=== PATIENT | female | born 1960 | race Two or more races ===

== ENCOUNTER 2016-07-18 08:09 | Emergency (ER) | payer BC, OTHER ==
[2016-07-18 08:15] VITALS: BP 151/97; PULSE 95; TEMP 98.3; BMI 38.7
--- NOTE | 2016-07-18 08:46 | PDOC ---
History of Present Illness - General Chief Complaint: Toothache Stated Complaint: SWOLLEN GUMS, TOOTHACHE Time Seen by Provider: 07/18/16 08:38 History Source: Patient Exam Limitations: No Limitations - History of Present Illness Initial Comments: 07/18/16 08:55 Chief complaint: Toothache and gum swelling right upper molar History of present illness: Patient is a 55-year-old female with a history of hypertension/GERD here today complaining of severe toothache right upper molar with swelling around her gum and tenderness abdominal area once yesterday. Patient took ibuprofen with relief of pain. Patient is requesting more ibuprofen and possible antibiotic. Patient reports that she has been getting dental care and is supposed to have this tooth extracted soon and get upper dentures. She does not have any facial swelling. Patient reports the pain is sharp and is currently a 10 out of 10. 07/18/16 08:58 Timing/Duration: getting worse Severity: severe Associated Symptoms: reports: other (rt. upper molar pain with swelling/ tenderness of gum around tooth) Past History - Past Medical History Allergies/Adverse Reactions: Allergies Allergy/AdvReac Type Severity Reaction Status Date / Time meperidine HCl [From Demerol] Allergy Verified 07/18/16 08:15 Home Medications: Ambulatory Orders Lisinopril 10 mg PO HS 10/29/15 Ibuprofen [Motrin -] 600 mg PO Q6H PRN #18 tablet MDD 4 07/18/16 Penicillin V Potassium [Pen Vee K -] 500 mg PO QID #28 tablet MDD 4 07/18/16 Anemia: No Asthma: No Cancer: No Cardiac Disorders: No CVA: No COPD: No CHF: No Dementia: No Diabetes: No GI Disorders: Yes (GERD) Disorders: No HTN: Yes Hypercholesterolemia: No Seizures: No Thyroid Disease: No - Surgical History Abdominal Surgery: No Appendectomy: No Cardiac Surgery: No Cholecystectomy: Yes Lung Surgery: No Neurologic Surgery: No Orthopedic Surgery: Yes (lt shoulder) - Psycho/Social/Smoking Cessation Hx Anxiety: No Suicidal Ideation: No Smoking Status: No Smoking History: Former smoker Have you smoked in the past 12 months: No Number of Cigarettes Smoked Daily: 0 If you are a former smoker, when did you quit?: 10 YRS Information on smoking cessation initiated: No Hx Alcohol Use: No Drug/Substance Use Hx: No Substance Use Type: None Hx Substance Use Treatment: No Review of Systems - Review of Systems Able to Perform ROS?: Yes Constitutional: No: Symptoms Reported HEENTM: Yes: Dental Problems (rt. upper molar toothache with surrounding edema and tenderness of the gum since yesterday) Respiratory: No: Symptoms reported Cardiac (ROS): No: Symptoms Reported ABD/GI: No: Symptoms Reported Musculoskeletal: No: Symptoms Reported Integumentary: No: Symptoms Reported Neurological: No: Symptoms reported *Physical Exam - Vital Signs Last Vital Signs Temp Pulse Resp BP Pulse Ox 98.3 F 95 H 20 151/97 99 07/18/16 08:11 07/18/16 08:11 07/18/16 08:11 07/18/16 08:11 07/18/16 08:11 - Physical Exam General Appearance: Yes: Appropriately Dressed HEENT: positive: TMs Normal, Other (right upper molar decay of tooth noted with surrounding edema and tenderness of gum patient does not have any other teeth except for this 1 tooth). negative: Pharyngeal Erythema, Tonsillar Exudate, Tonsillar Erythema, Nasal Congestion, Rhinorrhea Neck: negative: Lymphadenopathy (R), Lymphadenopathy (L) Respiratory/Chest: positive: Lungs Clear, Normal Breath Sounds. negative: Chest Tender, Respiratory Distress Cardiovascular: positive: Regular Rhythm, Regular Rate, S1, S2 Integumentary: positive: Normal Color Neurologic: positive: Alert, Responsive Medical Decision Making - Medical Decision Making 07/18/16 08:59 Patient is a 55-year-old female with a history of hypertension here today complaining of severe toothache right upper molar with swelling around her gum and tenderness abdominal area once yesterday. Patient took ibuprofen with relief of pain. Patient is requesting more ibuprofen and possible antibiotic. Patient reports that she has been getting dental care and is supposed to have this tooth extracted soon and get upper dentures. She does not have any facial swelling. Patient reports the pain is sharp and is currently a 10 out of 10. Tooth ache with infection of the surrounding gum Plan: Ibuprofen 600 mg by mouth now then every 6 hours as needed for pain Pen VK 500 mg one tab every 6 hours 7 days Follow-up with your dentist as soon as possible *DC/Admit/Observation/Transfer Diagnosis at time of Disposition: Toothache, Dental infection - Discharge Dispostion Disposition: HOME Condition at time of disposition: Stable - Patient Instructions Additional Instructions: Follow up with dentist at [facility] in [place] as soon as possible Foods and fluids as tolerated Return to emergency room if any facial swelling or worsening pain Patient voiced understanding of discharge instructions will questions were answered
[2016-07-18] MEDS ORDERED: IBUPROFEN 600 MG TABLET (FP) PO ONE ×2 (08:55→09:00)
== END 2016-07-18 09:26 | disposition home or self-care (01) ==
LOC: JERFT 08:09
DX: K04.7 Periapical abscess without sinus (principal); I10 Essential (primary) hypertension
CPT/HCPCS: 99281-25

== ENCOUNTER 2018-11-10 13:01 | Emergency (ER) | payer OTHER ==
[2018-11-10 13:05] VITALS: BP 143/92; PULSE 102; TEMP 98.1; BMI 37.1
[2018-11-10] MEDS ORDERED: ALBUTEROL SO4 2.5/IPRATROPIUM 0.5 INH SOL 3 ML VIAL.NEB. NEB ONE ×2 (13:35→13:37)
--- NOTE | 2018-11-10 13:41 | PDOC ---
History of Present Illness - General Chief Complaint: Respiratory Stated Complaint: COUGHING/ LOWER BACK PAIN Time Seen by Provider: 11/10/18 13:25 History Source: Patient Exam Limitations: No Limitations - History of Present Illness Initial Comments: 11/10/18 13:36 suffers from seasonal ALLERGIES but has taken no medication for relief of those. Denies fever, ear or throat pain. Timing/Duration: reports: getting worse Severity: reports: mild, moderate Associated Symptoms: reports: cough, nasal congestion, nasal drainage, wheezing. denies: earache, fever/chills, headache Past History - Travel Traveled outside of the country in the last 30 days: No Close contact w/someone who was outside of country & ill: No - Past Medical History Allergies/Adverse Reactions: Allergies Allergy/AdvReac Type Severity Reaction Status Date / Time meperidine HCl [From Demerol] Allergy Verified 11/10/18 13:03 Home Medications: Ambulatory Orders Lisinopril 10 mg PO HS 10/29/15 Albuterol Sulfate Inhaler - [Ventolin HFA Inhaler -] 1 - 2 inh PO Q4H #1 inhaler 11/10/18 Cetirizine HCl [Zyrtec -] 10 mg PO DAILY #30 tablet 11/10/18 Anemia: No Asthma: No Cancer: No Cardiac Disorders: No CVA: No COPD: No CHF: No Dementia: No Diabetes: No GI Disorders: Yes (GERD) Disorders: No HTN: Yes Hypercholesterolemia: No Seizures: No Thyroid Disease: No - Surgical History Abdominal Surgery: No Appendectomy: No Cardiac Surgery: No Cholecystectomy: Yes Lung Surgery: No Neurologic Surgery: No Orthopedic Surgery: Yes (lt shoulder) - Immunization History Immunization Up to Date: Yes - Suicide/Smoking/Psychosocial Hx Smoking Status: No Smoking History: Never smoked Have you smoked in the past 12 months: No Number of Cigarettes Smoked Daily: 0 If you are a former smoker, when did you quit?: 10 YRS Hx Alcohol Use: No Drug/Substance Use Hx: No Substance Use Type: None Hx Substance Use Treatment: No Respiratory Specific PMHX - Complaint Specific PMHX Bronchitis: No Pneumonia: No Review of Systems - Review of Systems Able to Perform ROS?: Yes Is the patient limited Thai proficient: Yes Constitutional: Yes: Symptoms Reported, See HPI, Malaise HEENTM: Yes: See HPI, Throat Swelling. No: Symptoms Reported Respiratory: Yes: See HPI, Cough, Wheezing. No: Symptoms reported, Shortness of Breath Cardiac (ROS): No: Symptoms Reported Integumentary: Yes: See HPI. No: Symptoms Reported All Other Systems: Reviewed and Negative *Physical Exam - Vital Signs Last Vital Signs Temp Pulse Resp BP Pulse Ox 98.1 F 102 H 18 143/92 98 11/10/18 13:03 11/10/18 13:03 11/10/18 13:03 11/10/18 13:03 11/10/18 13:03 - Physical Exam General Appearance: Yes: Nourished, Appropriately Dressed, Apparent Distress HEENT: positive: GIULIANA, TMs Normal, Pharynx Normal (cobblestone appearance of posterior pharynx with some whitish clear drainage), Nasal Congestion (clear), Rhinorrhea, Sinus Tenderness Neck: positive: Supple, Lymphadenopathy (R), Lymphadenopathy (L). negative: Tender Respiratory/Chest: positive: Lungs Clear, Wheezing Gastrointestinal/Abdominal: positive: Soft Extremity: positive: Normal Inspection. negative: Normal Capillary Refill Integumentary: positive: Dry, Warm, Pale Neurologic: positive: dietitian assistant II-XII NML intact, Fully Oriented, Alert, Normal Mood/ Affect, Normal Response, Motor Strength 5/5 Progress Note - Progress Note Progress Note: Much improved after albuterol nebulizer, will treat with antihistamines and when necessary albuterol to help keep lungs open *DC/Admit/Observation/Transfer Diagnosis at time of Disposition: Allergic rhinitis Qualifiers: Allergic rhinitis trigger: unspecified Allergic rhinitis seasonality: seasonal Qualified Code(s): J30.2 - Other seasonal allergic rhinitis - Discharge Dispostion Disposition: HOME Condition at time of disposition: Stable Decision to Admit order: No - Prescriptions Prescriptions: Albuterol Sulfate Inhaler - [Ventolin HFA Inhaler -] 1 - 2 inh PO Q4H #1 inhaler - Referrals - Patient Instructions Printed Discharge Instructions: DI for Allergic Rhinitis Additional Instructions: Rest, drink lots of fluids: Teas, water, soups Saltwater gargles. Consider humidifier in room at night Steamy showers/seem to face break up mucus Avoid contact with allergens, exposure to pollens, close windows on a windy day Lots of handwashing and good hygiene Continue [id number] medications for symptomatic relief- may use allergic eyedrops for itching I Continue antihistamines daily until pollen season is over; Zyrtec, Claritin, Ruth during the daytime and Benadryl at nighttime as will make sleepy Albuterol inhaler, 2 puffs 4 times a day for the next few days then as needed for cough and wheezing Tylenol or Motrin for fever and pain Followup with private physician in one to 2 days as needed Consider following up with an die maker/production control supervisor for skin testing and possible allergy shots Return to emergency department for worsened symptoms, fevers, dehydration - Post Discharge Activity Forms/Work/School Notes: Back to Work
== END 2018-11-10 14:14 | disposition home or self-care (01) ==
LOC: JERFT 13:01
PROC: 3E0F7GC Introduction of Other Therapeutic Substance into Respiratory Tract, Via Natural or Artificial Opening (ICD-10-PCS; principal; 2018-11-10)
DX: J30.2 Other seasonal allergic rhinitis (principal); I10 Essential (primary) hypertension
CPT/HCPCS: 94640; 99281-25

== ENCOUNTER 2019-01-11 14:49 | Emergency (ER) | payer OTHER ==
[2019-01-11 15:03] VITALS: TEMP 98.2; BMI 40.3
--- NOTE | 2019-01-11 15:44 | PDOC ---
History of Present Illness - General Chief Complaint: Chest Pain Stated Complaint: CHEST TIGHTNESS Time Seen by Provider: 01/11/19 15:22 - History of Present Illness Initial Comments: The pt is a 58F w/ a history of HTN, s/p tejinder, s/p L rotator cuff surgery who presents for evaluation of one week of chest pain. The pain is intermittent, burning/tightness, that will sometime radiate to her back and left shoulder, non -exertional, non-positional, and not exacerbated or alleviated by anything she can identify. She reports that is also feels like the sensation of needing to burp but it is not alleviated by burping. She denies fevers/chills, lightheadedness, vision changes, orthopnea, BRUSH, decreased exercise tolerance, abdominal pain, N/V/C/D, dysuria, hematuria, blood in her stool, or changes in sensation. The pt was seen at her PMD's office yesterday and told to f/u with Cardiology. The pt is unable to see the Offset Second Press Operator until March, is having continued symptoms, and thus presented for evaluation. She denies a FH of [place] or stroke Denies tobacco use PMD: Dr. Kierra Tao 01/11/19 15:57 Past History - Past Medical History Allergies/Adverse Reactions: Allergies Allergy/AdvReac Type Severity Reaction Status Date / Time meperidine HCl [From Demerol] Allergy Verified 01/11/19 15:00 Home Medications: Ambulatory Orders Cetirizine HCl [Zyrtec -] 10 mg PO DAILY #30 tablet 11/10/18 Lisinopril/Hydrochlorothiazide [Lisinopril-Hctz 20-12.5 mg Tab] 1 each PO DAILY 01/11/19 Anemia: No Asthma: No Cancer: No Cardiac Disorders: No CVA: No COPD: No CHF: No Dementia: No Diabetes: No GI Disorders: Yes (GERD) Disorders: No HTN: Yes Hypercholesterolemia: No Seizures: No Thyroid Disease: No - Surgical History Abdominal Surgery: No Appendectomy: No Cardiac Surgery: No Cholecystectomy: Yes Lung Surgery: No Neurologic Surgery: No Orthopedic Surgery: Yes (lt shoulder) - Immunization History Immunization Up to Date: Yes - Suicide/Smoking/Psychosocial Hx Smoking Status: No Smoking History: Never smoked Have you smoked in the past 12 months: No Number of Cigarettes Smoked Daily: 0 If you are a former smoker, when did you quit?: 10 YRS Hx Alcohol Use: No Drug/Substance Use Hx: No Substance Use Type: None Hx Substance Use Treatment: No Review of Systems - Review of Systems Able to Perform ROS?: Yes Comments:: GENERAL/CONSTITUTIONAL: No fever or chills. No weakness HEAD, EYES, EARS, NOSE AND THROAT: No change in vision. No ear pain or discharge. No sore throat CARDIOVASCULAR: No shortness of breath RESPIRATORY: Denies cough, hemoptysis_ GASTROINTESTINAL: No nausea, vomiting, diarrhea or constipation GENITOURINARY: No dysuria, frequency, or change in urination MUSCULOSKELETAL: No joint or muscle swelling or pain. +chronic shoulder and back pain SKIN: No rash NEUROLOGIC: No headache, vertigo, loss of consciousness, or change in strength/ sensation ENDOCRINE: No increased thirst. No abnormal weight change HEMATOLOGIC/LYMPHATIC: No anemia, easy bleeding, or history of blood clots ALLERGIC/IMMUNOLOGIC: No hives or skin allergy 01/11/19 15:44 Is the patient limited Guatemalan proficient: No *Physical Exam - Vital Signs Last Vital Signs Temp Pulse Resp BP Pulse Ox 98.2 F 88 18 133/75 100 01/11/19 15:01 01/11/19 15:01 01/11/19 15:01 01/11/19 15:01/11/19 15:01 - Physical Exam Comments: GENERAL: Awake, alert, and oriented to person/place/time, in no acute distress HEAD: No signs of trauma, normocephalic, atraumatic EYES: PERRLA, EOMI, sclera anicteric, conjunctiva clear ENT: Hearing grossly normal, nares patent, oropharynx clear without exudates. Moist mucosa LUNGS: No distress, speaks in full sentences, clear to auscultation bilaterally HEART: Regular rate and rhythm, normal S1 and S2, no murmurs appreciated, peripheral pulses normal and equal bilaterally CHEST: L parasternal reproducible chest pain ABDOMEN: Soft, nontender, normoactive bowel sounds. No guarding, no rebound EXTREMITIES: Normal inspection, Normal range of motion, no edema. No clubbing or cyanosis NEUROLOGICAL: Cranial nerves II through XII grossly intact. Normal speech, no focal sensorimotor deficits SKIN: Warm, Dry 01/11/19 15:44 Heart Score/ECG Review - History History: Slightly suspicious - Electrocardiogram EKG: Normal - Age Age: 45-65 - Risk Factors Risk Factors Heart Score: Yes Hx Hypertension Based on the list above the patient has:: 1-2 risk factors - Troponin Troponin: </= normal limit - Score Heart Score - Total: 2 ED Treatment Course - LABORATORY CBC & Chemistry Diagram: 01/11/19 16:25 01/11/19 16:25 Medical Decision Making - Medical Decision Making The pt is a 58F w/ a history of HTN who presents for evaluation of chest pain for 1 week Ddx includes GERD/esophagitis, MSK, ACS; consider AD but less likely given symmetric pulses, non-acute onset, no murmur, no neurological deficit ED Course CMP, CBC, Trop I ECG CXR Tylenol, Maalox, IVF, Pepcid 01/11/19 16:04 No anemia No leukocytosis Lytes wnl Trop I neg LFTs wnl No BLANCA ECG w/ NSR; HR 78; QTc 437; No evidence of acute ischemia HEART Score 2 01/11/19 17:32 Pt feels improved CXR w/o acute pathology Plan for D/C w/ Cardiology f/u Discharge instructions and return precautions given Pt in agreement and verbalized understanding Dispo: home 01/11/19 19:02 *DC/Admit/Observation/Transfer Diagnosis at time of Disposition: Chest pain Qualifiers: Chest pain type: unspecified Qualified Code(s): R07.9 - Chest pain, unspecified - Discharge Dispostion Disposition: HOME Condition at time of disposition: Stable Decision to Admit order: No - Referrals Referrals: Kierra Calixto MD [Primary Care Provider] - Roosevelt Mike MD [Staff Physician] - Matt Agudelo MD [Staff Physician] - - Patient Instructions Printed Discharge Instructions: DI for Atypical Chest Pain Additional Instructions: You were seen in the Emergency Department for evaluation of chest pain. Your ECG , labs, and imaging were unremarkable. Review the handout provided at discharge. Follow up with Cardiology (referrals provided). Return to the Emergency Department if you develop fevers/chills, trouble breathing, worsening pain, dizziness/lightheadedness, nausea/vomiting, worsening symptoms, or any new /concerning symptoms. - Post Discharge Activity
[2019-01-11] MEDS ORDERED: ACETAMINOPHEN 325 MG TABLET (FP) PO ONE (16:03)
[2019-01-11] MEDS ORDERED: LACTATED RINGERS SOLUTION 1000 ML INFUS.BAG IV ONE (16:04)
[2019-01-11] MEDS ORDERED: FAMOTIDINE 20 MG/50 ML IVPB 20 MG/50 ML MG IVPB ONE ×2 (16:04→16:20)
[2019-01-11] MEDS ORDERED: MAG HYDROX/AL HYDROX/SIMETH -MYLANTA- ORAL SUSPENSION PO ONE (16:04)
[2019-01-11] MEDS ORDERED: MAG HYDROX/AL HYDROX/SIMETH 30 ML UNIT-DOSE CUP ONE (16:20)
[2019-01-11] MEDS ORDERED: ACETAMINOPHEN 325 MG TABLET (FP) ONE (16:20)
[2019-01-11] MEDS ORDERED: ASPIRIN 81 MG CHEWABLE TABLETS PO ONE (16:30)
--- NOTE | 2019-01-11 16:44 | PDOC ---
Documentation entered by Devin Shaw SCRIBE, acting as scribe for Chilango Marroquin MD. Chilango Marroquin MD: This documentation has been prepared by the Valeria love Elijah, SCRIBE, under my direction and personally reviewed by me in its entirety. I confirm that the documentation accurately reflects all work, treatment, procedures, and medical decision making performed by me. Attending Attestation - Resident Resident Name: Oc Steve - ED Attending Attestation I have performed the following: I have examined & evaluated the patient, The case was reviewed & discussed with the resident, I agree w/resident's findings & plan - HPI HPI: 01/11/19 16:36 Patient is a 58 year old female HTN, s/p tejinder, s/p L rotator cuff surgery and GERD who presents to the ED with 1 week of intermittent Chest pain that radiates to the Left Shoulder and back. The patient describes the chest pain as pressure and it makes the patient feel as if she has to burp. The patient reports that the pain was originally alleviated when she burps but that is no longer the case and that Eating makes the pain worse. The patient notes that the pain radiating to the left shoulder feels like her normal chronic shoulder pain while the back pain feels abnormal. The patient notes previous episodes of this pain but this is the first time that the pain wont go away. The patient saw her PCP yesterday, who told her to see a traffic control signaler due to seeing a possible Heart Attack on the EKG, but when she couldn't get an appointment it prompted her visit to the ED. Denies Nausea, vomiting, fever, chills, abdominal pain and diarrhea. Allergies: Meperidine HCL Social History: Former Tobacco User (10 years prior) PCP: Dr. Cruz - Physicial Exam PE: 01/11/19 16:31 GENERAL: The patient is awake, alert, and fully oriented, Nontoxic - in no acute distress. HEAD: Normocephalic, atraumatic. EYES: extraocular movements intact, sclera anicteric, conjunctiva clear. ENT: Normal voice, Moist mucous membranes. NECK: Normal range of motion, supple LUNGS: Breath sounds equal, clear to auscultation bilaterally. No wheezes, no rhonchi, no rales. HEART: Regular rate and rhythm, normal S1 and S2 without murmur, rub or gallop. ABDOMEN: Soft, nontender, No guarding, no rebound. No CVA tenderness EXTREMITIES: Normal range of motion, no edema. NEUROLOGICAL: No facial assymetry, Normal speech, PSYCH: Normal mood, normal affect. SKIN: Warm, Dry, normal turgor, - Medical Decision Making 01/11/19 16:05 58y F hx of htn, left shoulder rotator cuff surgery presents with chest pain x 1 week mid subternal burning pain/and a burpingin sensation without associated rojas, cp/sob, n/v, diaphorsis, excercise intolerance. Pain is sometimes releived with burping and seems worse after eating. Was seen by PMD yestrday and had an EKG and referred to cardiology but appt is in [place]. ddx - ddx - gastritis, pancreatitis, gas, consider possible acs, wioll give GI coctail ekg unremarkble will give ASA will reassess 01/11/19 18:31 labs reviewed including trop -1 unremarkble pt feeling improved will dc with pmd fu Heart Score/ECG Review - ECG Impressions Comment:: 01/11/19 16:42 Twelve-lead EKG was performed and reviewed by me. There is normal sinus rhythm with a normal rate. rate of 78 The axis is normal. The intervals are normal. There is normal R wave progression There are no ST or T wave abnormalities. Impression: Normal twelve-lead EKG
[2019-01-11 16:56] LABS: BASO % 1.4 % (0-2.0); EOS % 4.7 % (0-4.5); HEMATOCRIT 39.7 % (32.4-45.2); HEMOGLOBIN 13.4 GM/dL (10.7-15.3); LYMPH % 24.1 % (8-40); MCH 28.6 pg (25.7-33.7); MCHC 33.9 g/dl (32.0-36.0); MEAN CELL VOLUME 84.4 fl (80-96); MEAN PLT VOLUME 7.6 fl (7.5-11.1); MONO % 8.8 % (3.8-10.2); PLATELET COUNT 269 K/MM3 (134-434); RDW 15.5 % (11.6-15.6); WHITE BLOOD COUNT 5.8 K/mm3 (4.0-10.0)
[2019-01-11 17:20] LABS: ALBUMIN 3.8 g/dl (3.4-5.0); ALK PHOS 93 U/L (45-117); ANION GAP 8 MMOL/L (8-16); BILIRUBIN,TOTAL 0.4 mg/dL (0.2-1); BLOOD UREA NITROGEN 12.7 mg/dL (7-18); CALCIUM 9.1 mg/dL (8.5-10.1); CHLORIDE 105 mmol/L (98-107); CO2 24 mmol/L (21-32); CREATININE 0.6 mg/dL (0.55-1.3); GLUCOSE,RANDOM 92 mg/dL (74-106); POTASSIUM 3.8 mmol/L (3.5-5.1); SGOT/AST 15 U/L (15-37); SGPT/ALT 16 U/L (13-61); SODIUM 137 mmol/L (136-145); TOT PROT 7.8 g/dl (6.4-8.2)
[2019-01-11] MEDS ORDERED: ASPIRIN 81 MG CHEWABLE TABLETS ONE (17:37)
[2019-01-11 18:31] VITALS: BP 127/64; PULSE 100
--- NOTE | 2019-01-12 11:56 | EKG ---
Test Reason : Blood Pressure : / mmHG Vent. Rate : 078 BPM Atrial Rate : 078 BPM P-R Int : 178 ms QRS Dur : 090 ms QT Int : 384 ms P-R-T Axes : 046 -07 024 degrees QTc Int : 437 ms NORMAL SINUS RHYTHM NORMAL ECG WHEN COMPARED WITH ECG OF 04-OCT-2011 15:58, NO SIGNIFICANT CHANGE WAS FOUND Confirmed by MK BERRIOS MD ([id number]) on 01/12/2019 11:56:16 AM Referred By: Confirmed By:MK BERRIOS MD
== END 2019-01-11 18:53 | disposition home or self-care (01) ==
LOC: JER 14:49
PROC: 3E033GC Introduction of Other Therapeutic Substance into Peripheral Vein, Percutaneous Approach (ICD-10-PCS; principal; 2019-01-11)
DX: R07.9 Chest pain, unspecified (principal); I10 Essential (primary) hypertension; K21.9 Gastro-esophageal reflux disease without esophagitis
CPT/HCPCS: 36415; 71045-TC-FY; 71046-TC-FY; 80053; 84484; 85025; 93005; 93010; 99285-25

== ENCOUNTER 2021-07-03 13:40 | Emergency (ER) | payer OTHER ==
[2021-07-03 14:34] VITALS: BP 170/92; PULSE 113; TEMP 98.5; BMI 38.7
== END 2021-07-03 18:06 | disposition home or self-care (01) ==
LOC: JER 13:40
DX: M54.50 Low back pain, unspecified (principal)
CPT/HCPCS: 71046-TC-FY; 99283-25

== ENCOUNTER 2024-11-29 15:54 | Emergency (ER) | payer OTHER ==
[2024-11-29 16:07] VITALS: BP 112/70; PULSE 100; RESP 18; TEMP 98; BMI 39.1
[2024-11-29] MEDS ORDERED: ACETAMINOPHEN INJECTION 100 ML ONE (17:03)
[2024-11-29] MEDS ORDERED: MAG HYDROX/AL HYDROX/SIMETH 30 ML UNIT-DOSE CUP ONE (17:04)
[2024-11-29] MEDS ORDERED: FAMOTIDINE 20 MG/50 ML IVPB 20 MG/50 ML MG IVPB ONE (17:04)
[2024-11-29 17:17] LABS: ABSOLUTE IMMATURE GRANULOCYTES 0.04 x10^3/uL (0.0-0.031); BASOPHILS # 0.09 x10^3/uL (0.01-0.08); EOSINOPHIL % 1.3 % (0.7-5.8); EOSINOPHILS # 0.12 x10^3/uL (0.04-0.36); HEMATOCRIT 43.5 % (34.1-44.9); MCHC 32.2 g/dl (32.2-35.5); MEAN CELL VOLUME 88.6 fl (79.4-94.8); MEAN PLT VOLUME 9.4 fl (9.4-12.3); MONOCYTE # 0.51 x10^3/uL (0.24-0.86); MONOCYTE % 5.7 % (4.7-12.5); PLATELET COUNT 241 x10^3/uL (182-369)
[2024-11-29] MEDS: ACETAMINOPHEN 1000 MG/100 ML BAG IVPB ONE (17:19)
[2024-11-29] MEDS: MAG HYDROX/AL HYDROX/SIMETH 30 ML UNIT-DOSE CUP PO ONE (17:19)
[2024-11-29 17:20] LABS: PH,URINE 6.5 (5.0-8.0); URINE APPEARANCE CLEAR; URINE BILIRUBIN NEGATIVE (NEGATIVE); URINE COLOR YELLOW; URINE GLUCOSE (UA) NEGATIVE (NEGATIVE); URINE KETONE NEGATIVE (NEGATIVE); URINE LEUK ESTERASE NEGATIVE (NEGATIVE); URINE NITRITE NEGATIVE (NEGATIVE); URINE PROTEIN NEGATIVE (NEGATIVE); URINE UROBILINOGEN 0.2 mg/dL (0.2-1.0)
[2024-11-29] MEDS: FAMOTIDINE 20 MG/50 ML IVPB 20 MG/50 ML MG IVPB ONE (17:20)
[2024-11-29 18:02] LABS: POTASSIUM 4.7 mmol/L (3.5-5.1)
[2024-11-29 18:04] LABS: CALCIUM 9.5 mg/dL (8.5-10.1)
[2024-11-29 18:05] LABS: ALBUMIN 3.9 g/dl (3.4-5.0); BLOOD UREA NITROGEN 16.8 mg/dL (7-18)
[2024-11-29 18:08] LABS: CREATININE 0.7 mg/dL (0.55-1.3)
[2024-11-29 18:09] LABS: TOT PROT 7.8 g/dl (6.4-8.2)
[2024-11-29 18:10] LABS: BILIRUBIN,TOTAL 0.7 mg/dL (0.2-1)
== END 2024-11-29 21:17 | disposition home or self-care (01) ==
LOC: JER 15:54
PROC: 3E033GC Introduction of Other Therapeutic Substance into Peripheral Vein, Percutaneous Approach (ICD-10-PCS; principal; 2024-11-29)
PROC: 3E033NZ Introduction of Analgesics, Hypnotics, Sedatives into Peripheral Vein, Percutaneous Approach (ICD-10-PCS; 2024-11-29)
DX: M54.50 Low back pain, unspecified (principal); R10.84 Generalized abdominal pain; J02.9 Acute pharyngitis, unspecified
CPT/HCPCS: 0241U-QW; 36415; 74177-TC; 80053; 81003; 83735; 84484; 85025; 87086; 93005; 93010; 96365; 96375; 99285-25; J0131; Q9967